=== PATIENT | male | born 1990 | race Caucasian/White ===

== ENCOUNTER 2024-04-10 12:11 | Inpatient (IN) | payer OTHER, SELFPAY ==
[2024-04-10 12:12] VITALS: BMI 44.4
--- NOTE | 2024-04-10 12:16 | EKG_ITS ---
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1990 Requested By: ED Temporary Provider Order Number: [id number] Reading MD: ED Temporary Provider Measurements Intervals [place] Rate: 116 P: 17 HI: 150 QRS: -49 QRSD: 88 T: -7 QT: 302 QTc: 421 Interpretive Statements SINUS TACHYCARDIA S1-S2-S3 PATTERN, CONSISTENT WITH PULMONARY DISEASE, RVH, OR NORMAL VARIANT LEFT ANTERIOR FASCICULAR BLOCK [QRS AXIS <= -45, QR IN I, RS IN II] MINIMAL VOLTAGE CRITERIA FOR LVH, CONSIDER NORMAL VARIANT [MEETS CRITERIA IN ONE OF: R(aVL), S(V1), R(V5), R(V5/V6)+S(V1)] POSSIBLE ANTERIOR MYOCARDIAL INFARCTION , PROBABLY OLD [30 ms Q WAVE IN V3/V4, OR R < 0.2 mV IN V4] No previous ECG available for comparison /store/S0/[id number]/[id number].pdf
--- NOTE | 2024-04-10 12:51 | XR_ITS ---
Examination: CT abdomen and pelvis without contrast. Coronal 3-D reconstructions. Sagittal 2-D reconstructions. Date and time of exam:April 10, 2024 at 1255 hours INDICATIONS: Generalized abdominal pain nausea vomiting today CTDI: vol (mGy): 12.7 DLP: (mGycm): 923 Technique: Axial images of the abdomen have been obtained, 3 mm slice thickness Intravenous contrast material has not been administered. Low dose protocols were performed. One or more of the following dose reduction techniques were used; automated exposure control, adjustment of the mA and/or KV according to patient size, use of iterative reconstruction technique. Findings: Hepatomegaly 22 cm with severe diffuse fatty infiltration throughout the liver Splenomegaly AP dimension 15 cm Acute pancreatitis, extensive edema surrounding the pancreas Aorta normal size No hydronephrosis No bowel obstruction Normal appendix No diverticulitis Urinary bladder wall thickening up to 6 mm No prostatomegaly IMPRESSION: Hepatosplenomegaly Severe diffuse fatty infiltration throughout the liver Acute pancreatitis Cystitis pattern
--- NOTE | 2024-04-10 12:51 | PD.EDRME ---
Rapid Medical Screening Exam RME Arrival date/time: 04/10/24 12:11 33-year-old male presents emergency department complains of generalized abdominal pain and chest pressure Chief Complaint: Abdominal Pain
[2024-04-10 13:00] VITALS: BP 145/84; PULSE 117; RESP 20; TEMP 38.4; O2SAT 96; BMI 44.6
[2024-04-10 13:35] LABS: Collection Type, Urine Clean Catch
[2024-04-10 13:38] LABS: Lactate (Lactic Acid) 1.3 mMol/L (0.4-2.0)
[2024-04-10 13:40] LABS: Basophils % (Auto) 0 % (0-2.5); Eosinophils % (Auto) 0 % (0-10); Hematocrit 41.4 % (41.0-53.0); Hemoglobin 14.3 g/dL (13.5-16.0); Immature Granulocytes % (Auto) 1 % (0-0); Immature Granulocytes Auto 0.11 Thou/mm3 (0.00-0.00); Lymphocytes # (Auto) 0.4 Thou/mm3 (1.0-4.8); Lymphocytes % (Auto) 5 % (10-50); Mean Corpuscular HGB Conc 34.5 g/dl (31.0-37.0); Mean Corpuscular Hemoglobin 29.6 pg (25.0-35.0); Mean Corpuscular Volume 86 fL (80-100); Monocytes # (Auto) 0.4 Thou/mm3 (0.0-0.8); Monocytes % (Auto) 4 % (0-12); Neutrophils # (Auto) 8.1 Thou/mm3 (1.8-7.7); Neutrophils % (Auto) 89 % (37-80); Nucleated Red Blood Cell % 0 /100 WBC (0); Platelet Count 269 Thou/mm3 (140-440); RDW Standard Deviation 38.5 fL (35.1-43.9); Red Blood Count 4.83 Miln/mm3 (4.50-5.90)
[2024-04-10 13:51] LABS: Bilirubin,Urine Negative (Negative); Blood,Urine Negative (Negative); Clarity,Urine Clear (Clear/Hazy); Color,Urine Lt-Yellow (Lt Yel-Yel); Culture Indicated,Urine Not Indicated; Glucose, Urine 4+ (Negative); Ketones,Urine 2+ (Negative); Leukocyte Esterase,Urine Negative (Negative); Nitrite,Urine Negative (Negative); PH,Urine 6.5 (5.0-7.0); Protein,Urine Negative (Neg - Trace); RBC,Urine 3 /hpf (0-3); Squamous Epithelial Cell,Urine < 1 /hpf (0-5); Urobilinogen,Urine Negative mg/dL (0.0-1.0); WBC,Urine 1 /hpf (0-5)
[2024-04-10 13:53] LABS: Specific Gravity,Urine 1.015 (1.001-1.035)
[2024-04-10 14:05] LABS: Alanine Aminotransferase 42 U/L (10-49); Albumin, Serum 4.5 gm/dL (3.5-5.0); Albumin/Globulin Ratio 1.6 (1.2-2.2); Alkaline Phosphatase 92 U/L (46-116); Anion Gap 11 (7-16); Aspartate Amino Transferase 24 U/L (0-34); BUN/Creatinine Ratio 13 Ratio (12-20); Bilirubin,Total 0.6 mg/dL (0.3-1.2); Blood Urea Nitrogen 10 mg/dL (9-23); Calcium 8.8 mg/dL (8.3-10.6); Calcium (Corrected) 8.8 mg/dL (8.5-10.1); Carbon Dioxide 22.9 mMol/L (20.0-31.0); Chloride 99 mMol/L (98-107); Creatinine (Component) 0.8 mg/dL (0.6-1.3); Estimated Creatinine Clearance 164.3 mL/min (>60); Globulin 2.8 gm/dL (2.3-3.5); Glucose 359 mg/dL (74-106); Lipase 38 U/L (12-53); Osmolality,Calculated 279 (275-295); Potassium 3.7 mMol/L (3.4-5.1); Procalcitonin 0.29 ng/ml (0.0-0.49); Sodium 133 mMol/L (136-145); Total Protein 7.3 gm/dL (5.7-8.2); Troponin I < 0.002 ng/mL (0.0-0.045); eGFR > 60 See Note
[2024-04-10 14:43] VITALS: TEMP 38.4
[2024-04-10] MEDS: ACETAMINOPHEN 500 MG TABLET 1000 MG PO (14:43)
[2024-04-10] MEDS: ONDANSETRON ODT 4 MG TABRAP PO (14:44)
[2024-04-10 19:30] VITALS: BP 143/93; PULSE 93; RESP 18; TEMP 37.1; O2SAT 95
--- NOTE | 2024-04-10 22:45 | PC.NURSE ---
Dr. Harrington seeing pt in old triage room at this time.
--- NOTE | 2024-04-10 22:55 | EDNOTE_ITS ---
ED Abdominal Pain RME/HPI General Chief Complaint: Abdominal Pain Stated complaint: ABD PAIN AND BLOATING AND IS DM Time seen by provider: 04/10/24 22:58 Arrival date/time: 04/10/24 12:11 Limitations: no limitations RME / HPI RME / HPI narrative: 04/10/24 12:11 33-year-old male presents emergency department complains of generalized abdominal pain and chest pressure. ----- Dr. Harrington's Main ED Evaluation: 33yo male with a history of DM presents to the ED for a chief complaint of epigastric pain x 4 days. Patient states he's had increased urinary frequency, reporting he urinates 30-40x/day for the last 4 days. He states his epigastric pain has been worsening after he eats or drinks anything. He reports associated nausea and a fever of 101 at home. Patient denies any vomiting, diarrhea, cough or any other associated symptoms. No known allergies. Patient denies any alcohol use. He is s/p cholecystectomy. He has not been taking his metformin. Related Data Allergies Allergy/AdvReac Type Severity Reaction Status Date / Time No Known Allergies Allergy Verified 04/10/24 12:15 Review of Systems Review of Systems Systems Reviewed: All systems reviewed, normal except as documented Past Medical History Social History SMOKING STATUS: Current some day smoker ED Exam General Limitations: Present no limitations General appearance: Present alert and in no apparent distress Head Head exam: Present atraumatic Eye Eye exam: Present normal appearance, PERRL and EOMI ENT ENT exam: Present normal exam, normal oropharynx and mucous membranes dry Neck Neck exam: Present normal inspection, full ROM and trachea midline Chest Chest inspection: Present normal inspection and symmetric chest wall rise Respiratory Respiratory exam: Present normal lung sounds bilaterally Cardiovascular Cardiovascular exam: Present regular rate, normal rhythm and normal heart sounds Abdominal Exam Abdominal exam: Present soft and normal bowel sounds; Absent rebound Abdominal tenderness: Present epigastrium and mild Extremities Exam Extremities exam: Present normal inspection and full ROM; Absent pedal edema Back Exam Back exam: Present normal inspection and full ROM; Absent CVA tenderness (R) or CVA tenderness (L) Neurological Exam Neurological exam: Present alert, oriented X3 and CN II-XII intact Psychiatric Psychiatric exam: Present normal affect and normal mood Skin Skin exam: Present warm, dry, intact and normal color Course Quality Measures none Orders Category Date Time Status Bedside Influenza A&B Antigen Test NOW Care 04/10/24 12:56 Completed EKG (ED ONLY) *Do not use* NOW Care 04/10/24 12:[address] abdomen pelvis wo con Stat Exams 04/10/24 12:51 Completed EKG (ED Only) Stat Exams 04/10/24 12:16 Ordered Blood Culture (Lab) Stat Lab 04/10/24 13:16 Received CBC Stat Lab 04/10/24 13:16 Completed Comprehensive Metabolic Panel Stat Lab 04/10/24 13:16 Completed LDH (Lactate Dehydrogenase) Stat Lab 04/10/24 13:16 Completed Lactic Acid [Lactate (Lactic Acid)] Stat Lab 04/10/24 13:16 Completed Lipase Stat Lab 04/10/24 13:16 Completed Lipid Panel Stat Lab 04/10/24 13:16 Completed Procalcitonin Stat Lab 04/10/24 13:16 Completed Troponin I Stat Lab 04/10/24 13:16 Completed UA, C/S IF [Urinalysis, C/S if Indicated] Stat Lab 04/10/24 13:29 Completed Acetaminophen Tab [Tylenol ES Tab] Med 04/10/24 12:55 Discontinued 1,000 mg PO X1 ONE Acetaminophen Tab [Tylenol ES Tab] Med 04/10/24 14:48 Discontinued 500 mg PO .STK-MED ONE Ondansetron Odt [Zofran Odt] Med 04/10/24 12:55 Discontinued 4 mg PO X1 ONE Vital Signs Vital signs: Vital Signs Temperature 101.2 F H 04/10/24 13:00 Pulse Rate 117 H 04/10/24 13:00 Respiratory Rate 20 04/10/24 13:00 Blood Pressure 145/84 H 04/10/24 13:00 Pulse Oximetry (%) 96 04/10/24 13:00 Oxygen Delivery Method Room Air 04/10/24 13:00 Abdominal Pain MDM Patient data External records reviewed:: [facility] previous records (Per chart review, patient has no previous ED visits or admissions to this facility.) Clinical information provided by:: patient Social determinants that could affect healthcare access:: none Patient has the following chronic illnesses:: DM How is presenting disease/condition affected by chronic disease/condition?: uneffected by Evaluation data The following diagnostics were reviewed and interpreted by me:: lab results and radiology exam(s) Lab and/or radiology exams considered but not ordered:: none Interpretation Summary: CBC is normal, Glucose is elevated at 359, Lipase is normal, Lactic Acid is normal, Procalcitonin is normal, UA shows 4+ glucose and 2+ ketones, according to my interpretation. EKG done at 1257, sinus tachycardia, rate of 116, t-wave inversion in V3, no ST elevations or depressions, minimal LVH, QTC: 371, no STEMI, according to my interpretation. ---- [place] [facility] Report Signed Patient: MAGO LUNA. Record#: [id number] Birthdate: 1990 Age/Sex: 33 / M Location: [facility] Attending Dr: Ordering Physician: Kay DEWITT)Radames NP Date of Service: 04/10/24 Procedure(s): CT abdomen pelvis wo con Accession Number(s): [id number] cc: Kay DEWITT),Radames DAWKINS; Asad Bruce MD; NO PRIMARY/FAMILY,PHYSICIAN~ Examination: CT abdomen and pelvis without contrast. Coronal 3-D reconstructions. Sagittal 2-D reconstructions. Date and time of exam:April 10, 2024 at 1255 hours INDICATIONS: Generalized abdominal pain nausea vomiting today CTDI: vol (mGy): 12.7 DLP: (mGycm): 923 Technique: Axial images of the abdomen have been obtained, 3 mm slice thickness Intravenous contrast material has not been administered. Low dose protocols were performed. One or more of the following dose reduction techniques were used; automated exposure control, adjustment of the mA and/or KV according to patient size, use of iterative reconstruction technique. Findings: Hepatomegaly 22 cm with severe diffuse fatty infiltration throughout the liver Splenomegaly AP dimension 15 cm Acute pancreatitis, extensive edema surrounding the pancreas Aorta normal size No hydronephrosis No bowel obstruction Normal appendix No diverticulitis Urinary bladder wall thickening up to 6 mm No prostatomegaly IMPRESSION: Hepatosplenomegaly Severe diffuse fatty infiltration throughout the liver Acute pancreatitis Cystitis pattern Dictated By: Asad Bruce MD Signed By: <Electronically signed by Asad Bruce MD in OV> 04/10/24 7487 Medications / Prescriptions Medications or Prescriptions considered but not ordered:: none Medication administrations:: Medication Administration History Acetaminophen (Acetaminophen 500 Mg Tablet) 1,000 mg PO Q6HR PRN PRN Reason: Temp > 100.3 or Pain 1-6 Stop: 05/11/24 01:04 Dextrose (Dextrose 50%-Water Inj 50 Ml Syringe) 25 ml IV Q15MIN PRN PRN Reason: BG 50-70 responsive npo pt Stop: 05/10/24 23:16 Dextrose (Dextrose 50%-Water Inj 50 Ml Syringe) 50 ml IV Q15MIN PRN PRN Reason: BG <50 OR BG <70 & pt unresponsive Stop: 05/10/24 23:16 Enoxaparin Sodium (Enoxaparin Sod Inj 40 Mg/0.4 Ml Syringe) 40 mg SC QDAY [facility] Stop: 04/25/24 08:59 Glucagon (Glucagon Inj 1 Mg Vial) 1 mg IM Q15MIN PRN PRN Reason: BG <70, and no IV access Lactated Ringer's (Lactated Ringers) 1,000 mls @ 150 mls/hr IV .Q6H40M MONY Stop: 05/10/24 23:14 Last Admin: 04/11/24 00:22 Dose: 150 mls/hr Documented By: EF Insulin Glargine (Insulin Glargine (Lantus) 5 Unit/0.05 Ml (Per 5 Units)) 10 unit SC QDAY [facility] Stop: 05/11/24 08:59 Insulin Human Lispro (Insulin Lispro (Admelog) 1 Unit/0.01 Ml Unit) 0 unit SC AC [facility]; Protocol Stop: 05/11/24 07:29 Morphine Sulfate (Morphine Sulf Inj 10 Mg/Ml Vial) 2 mg IVP Q4HR PRN PRN Reason: PAIN SCALE 7-10 (Severe Stop: 04/15/24 23:14 Ondansetron HCl (Ondansetron Inj 2 Mg/Ml Inj 2 Ml) 4 mg IV Q6HR PRN; Protocol PRN Reason: NAUSEA OR VOMITING Stop: 05/10/24 23:52 Discontinued Medications Acetaminophen (Acetaminophen 500 Mg Tablet) 1,000 mg PO X1 ONE Stop: 04/10/24 12:56 Last Admin: 04/10/24 14:43 Dose: 1,000 mg Documented By: Acetaminophen (Acetaminophen 500 Mg Tablet) Confirm Administered Dose 500 mg PO .STK-MED ONE Stop: 04/10/24 14:49 Last Admin: 04/10/24 15:07 Dose: Not Given Documented By: DAA Non-Admin Reason: Duplicate Medication on eMAR Acetaminophen (Acetaminophen 500 Mg Tablet) 1,000 mg PO Q6HR PRN PRN Reason: Temp > 100.3 or Pain 1-3 Stop: 05/11/24 01:04 Morphine Sulfate (Morphine Sulf Inj 10 Mg/Ml Vial) 2 mg IVP Q2H PRN PRN Reason: PAIN SCALE 7-10 (Severe Stop: 04/15/24 23:14 Ondansetron HCl (Ondansetron Odt 4 Mg Tabrap) 4 mg PO X1 ONE; Protocol Stop: 04/10/24 12:56 Last Admin: 04/10/24 14:44 Dose: 4 mg Documented By: see above Consultations Consultation(s) initiated? (list below): Yes Consultation #1 (Physician, Specialty, Details): Discussed case with [Dr. Griffin] from Hospitalist service regarding admission. Discussed patients ED course, exam findings, labs, and radiology results. The Hospitalist [agrees] to accept the patient for admission. Time: 22:59 Diagnosis Differential diagnosis abdominal pain: acute appendicitis, diverticulitis, pancreatitis and other (dehydration, electrolyte abnormality) Most likely diagnosis given after review of the tests above:: acute pancreatitis Admission Indicated Admission indicated?: indicated Admission Request Was there a request for admission?: Yes Admission Attestation Admission request attestation: Discussed case with [] from Hospitalist service regarding admission. Discussed patients ED course, exam findings, labs, and radiology results. The Hospitalist [agrees,declines] to accept the patient for admission. Disposition Plan Disposition Plan: Admit Discharge Plan Plan Patient Disposition: Admit Acute Care w/in Hospital Patient condition on transfer: Stable Problem List Clinical Impression: Acute pancreatitis, History of hypertension
--- NOTE | 2024-04-10 23:19 | XR_ITS ---
Examination: AP chest single view Technique one AP portable upright chest single view Exam date and time: April 10, 1999 2610 4:00 PM Indications: Abdominal pain bloating and shortness of breath today Findings: Normal heart size. Lungs are clear. The osseous structures are intact Impression: No active disease
--- NOTE | 2024-04-10 23:21 | PD.EVENT ---
Documentation for date of: 04/10/24 Event Note Event Note: A 33-year-old male presented to the ER with the chief complaint of persistent bloating and a sensation of fullness for the past four days. The patient reports feeling constantly bloated with no appetite and a sensation of fullness even after drinking water. He denies vomiting, though he states he suppresses vomiting when it occurs. The symptoms worsened significantly this morning, accompanied by a fever of 101.1?F, body aches, and back pain radiating from his abdomen. He notes intermittent sweating, more pronounced in the mornings with previous chills. He denies diarrhea but reports upper abdominal pain that radiates to his back. This is the first episode of such symptoms, and he reports no similar prior issues. The patient has a history of diabetes, for which he was prescribed metformin but admits to nonadherence. He also has a history of gallbladder removal and denies high blood pressure. He uses occasional lmcq-yeg-sbifpzj medications such as Prilosec and was recently prescribed antibiotics for a cough related to the flu after visiting urgent care. His social history includes no regular alcohol use, no smoking, and limited cannabis use via a wax pen for a few days. He denies other substance use. He recalls being treated with antibiotic injections last week for a persistent cough and states he is completing his last dose of prescribed oral antibiotics. In the Emergency Department, vital signs were recorded as follows: temperature 101.2?F, heart rate 117 bpm, blood pressure 145/84 mmHg, respiratory rate 20 breaths per minute. Interventions included IV hydration and pain management. Laboratory results showed a white blood cell count of 9.0 and lipase of 38. Imaging via CT revealed hepatosplenomegaly, severe diffuse fatty infiltration of the liver, acute pancreatitis, and cystitis pattern. The patient was admitted for further management.
[2024-04-10 23:23] VITALS: BP 146/85; PULSE 91; RESP 18; O2SAT 95
--- NOTE | 2024-04-10 23:25 | ESHP_ITS ---
Documentation for date of: 04/10/24 HPI History of Present Illness Chief complaint: Nausea, Abdominal pain History of present illness: HPI: Patient is a 33-year-old male questionable history significant for xbu-xnhputy-pgqdywzox diabetes mellitus type 2 [13.5] and obesity class III presenting today with a chief complaint of nausea and abdominal pain. Patient stated that for the past 4 days he has nausea and abdominal pain. Patient stated that anytime after he had something to eat or drink he would feel severe nausea but never vomited. His abdominal pain he described as epigastric and left upper quadrant 6/10 in severity, intermittent, radiated to back, relieved by ibuprofen. Also associated with decreased appetite and watery diarrhea for past 3 days. Of note for the past 2 weeks patient had viral upper respiratory symptoms. These consisted mainly nonproductive cough, generalized weakness and generalized body pain. Last week Tuesday patient presented to [facility] urgent care and had IM antibiotics for 3 days and was prescribed a course of p.o. antibiotics for 5 days. Patient cannot remember the name of the antibiotics. Today patient's nausea progressively worsened and he called the MA who gave him a questionnaire to fill out. At the end of the questionnaire he was advised to immediately present to the emergency department. ED course: BP 145/84, pulse 117, RR 20, temp 101.2 F, SpO2 96% on room air. No significant for Hb 14.3, WBC 9, glucose 90, lipase 38. Urinalysis significant for 4+ glucose, 2+ ketones. Abdomen/pelvis CT significant for hepatomegaly 27 cm with fatty infiltrates, splenomegaly 15 cm and findings consistent with acute pancreatitis with diffuse edema. Patient received acetaminophen 1 g p.o. x 1 and ondansetron 4 Mg p.o. x 1 in the ED. Patient will be admitted for treatment and management of acute pancreatitis. Review of Systems Review of Systems Narrative Review of Systems: GENERAL: Denies fever/chills or diaphoresis. HEENT: Denies headaches or visual changes. Denies discharge. Neuro: Denies unusual weakness or difficulty speaking. CARDIO: Denies chest pain or palpitations. PULM: Denies SOB, couging or wheezing. GI: As above URO: Denies buring/itching/pain/urinary changes. MSK/EXT/SKIN: Denies joint/skeletal/muscle pain, issues/changes in upper or lower extremities, itchiness, or superficial pain. PSYCH: Cooperative, pleasant mood & affect. The rest of the review of systems is otherwise negative. Past Medical History Past Medical History Comments PMH COMMENT: Past medical history: - Non insulin dependent diabetes mellitus type 2 [13.5] Medication list: - Metformin 1g po BID - Non compliant Past surgical history: - Cholecystectomy 2020 Allergies: NKFDA Social history: Occupational History: Education Level: Marital Status: with 6 kids Tobacco use: Denies ETHO use: Denies Illicit drug use: Recently started to use Marijuana vape Social History Note: lives with and 6 kids Family History: Strong family history of Diabetes Exam Vital Signs Temp Pulse Resp BP Pulse Ox O2 Del Method 98.8 F 91 18 146/85 H 95 Room Air 04/10/24 19:30 04/10/24 23:23 04/10/24 23:23 04/10/24 23:23 04/10/24 23:23 04/10/24 23:23 Narrative Exam Constitutional Alert, oriented x 3 and comfortable. Young male, appears much older than his age. Obese. HEENT Vision grossly intact. Patent nares. Trachea midline. Respiratory Chest normal on inspection and clear auscultation bilaterally, decreased air entry at bases bilaterally. Cardiovascular S1 and S2 audible, RRR. No murmurs carotid bruit. No gross JVD. Abdominal Soft, obese and mild tenderness to deep palpation left upper quadrant and epigastrium, mass palpated 4 finger, breadths below right costal margin most consistent with liver mass palpated 2 fingerbreadths below left costal margin most consistent with spleen. Genitourinary No bladder tenderness, no flank pain. Normal to palpation. Musculoskeletal Extremities tone within normal limits. Trace LE edema. Neurological CN II - XII grossly intact. Extremity motor and sensation grossly intact. Skin Warm, dry and intact. No apparent lesions. Psychiatric Patient has good affect, is cooperative Results: Labs 04/10/24 13:16 04/10/24 13:16 Labs: Short CBC 04/10/24 Range/Units 13:16 WBC 9.0 (3.8-10.6) Thou/mm3 Hgb 14.3 (13.5-16.0) g/dL Hct 41.4 (41.0-53.0) % Plt Count 269 (140-440) Thou/mm3 BMP 04/10/24 13:16 Sodium 133 L Potassium 3.7 Chloride 99 Carbon Dioxide 22.9 BUN 10 Creatinine 0.8 Glucose 359 H Calcium 8.8 Cardiac Enzymes 04/10/24 Range/Units 13:16 Troponin I < 0.002 (0.0-0.045) ng/mL Liver Function 04/10/24 Range/Units 13:16 Total Bilirubin 0.6 (0.3-1.2) mg/dL AST 24 (0-34) U/L ALT 42 (10-49) U/L Alkaline Phosphatase 92 (46-116) U/L Albumin 4.5 (3.5-5.0) gm/dL Urine 04/10/24 Range/Units 13:29 Urine Color Lt-Yellow (Lt Yel-Yel) Urine Clarity Clear (Clear/Hazy) Urine pH 6.5 (5.0-7.0) Ur Specific [place] 1.015 (1.001-1.035) Urine Protein Negative (Neg - Trace) Urine Glucose (UA) 4+ A (Negative) Quality Measures Quality Measures none Medications Home Medications and Allergies Allergies Allergy/AdvReac Type Severity Reaction Status Date / Time No Known Allergies Allergy Verified 04/10/24 12:15 Visit Medications Dextrose (Dextrose 50%-Water Inj 50 Ml Syringe) 25 ml IV Q15MIN PRN PRN Reason: BG 50-70 responsive npo pt Stop: 05/10/24 23:16 Dextrose (Dextrose 50%-Water Inj 50 Ml Syringe) 50 ml IV Q15MIN PRN PRN Reason: BG <50 OR BG <70 & pt unresponsive Stop: 05/10/24 23:16 Enoxaparin Sodium (Enoxaparin Sod Inj 40 Mg/0.4 Ml Syringe) 40 mg SC QDAY [facility] Stop: 04/25/24 08:59 Glucagon (Glucagon Inj 1 Mg Vial) 1 mg IM Q15MIN PRN PRN Reason: BG <70, and no IV access Lactated Ringer's (Lactated Ringers) 1,000 mls @ 150 mls/hr IV .Q6H40M [facility] Stop: 05/10/24 23:14 Insulin Glargine (Insulin Glargine (Lantus) 5 Unit/0.05 Ml (Per 5 Units)) 10 unit SC QDAY [facility] Stop: 05/11/24 08:59 Insulin Human Lispro (Insulin Lispro (Admelog) 1 Unit/0.01 Ml Unit) 0 unit SC AC [facility]; Protocol Stop: 05/11/24 07:29 Morphine Sulfate (Morphine Sulf Inj 10 Mg/Ml Vial) 2 mg IVP Q2H PRN PRN Reason: PAIN SCALE 7-10 (Severe Stop: 04/15/24 23:14 Discontinued Medications Acetaminophen (Acetaminophen 500 Mg Tablet) 1,000 mg PO X1 ONE Stop: 04/10/24 12:56 Last Admin: 04/10/24 14:43 Dose: 1,000 mg Ondansetron HCl (Ondansetron Odt 4 Mg Tabrap) 4 mg PO X1 ONE; Protocol Stop: 04/10/24 12:56 Last Admin: 04/10/24 14:44 Dose: 4 mg Assessment & Plan Plan Patient is a 33-year-old male questionable history significant for unz-dryjaya-wcpfbcitb diabetes mellitus type 2 [13.5] and obesity class III presenting today with a chief complaint of nausea and abdominal pain. Patient will be admitted for treatment and management of acute pancreatitis. 1. Acute pancreatitis 2. SIRS 2/4 3. Nausea For the past 4 days patient had severe nausea upon p.o. intake of both solids and liquids associated with abdominal pain radiating to his back. On exam patient had tenderness to palpation in epigastrium and left upper quadrant. Etiology: Hyperlipidemia, biliary sludge, viral infection, mycoplasma, HIV, idiopathic. Abdomen/pelvis CT significant for hepatomegaly 27 cm with fatty infiltrates, splenomegaly 15 cm and findings consistent with acute pancreatitis with diffuse edema. Lipase 38 Patient met 2/3 Paige criteria for acute pancreatitis. [Abdominal pain and CT findings] BISAP score: 1 point. Initially tried to start patient on clear liquid diet, but he could not tolerate and started to dry heave. Plan: ? N.p.o. ? Lipid panel, HbA1c, HIV 1 and 2 rapid ordered ? Lactated Ringer's IV fluids at 125 cc/hour ? Ondansetron 4 Mg IV Q6 hourly as needed for nausea or vomiting ? Acetaminophen 1 g p.o. Q6 hourly for temperature >100.3 F ? Morphine 2 g IV Q4 hourly for pain 7/10 and above 4. Tnc-wmnulpc-fjpgidyrk diabetes mellitus type 2 [13.5] Patient home medication metformin 1 g p.o. twice daily. However patient admits to being compliant. Plan: ? Insulin sliding scale to cover for any blood glucose spikes 5. Obesity class III BMI 44.6 Plan: ? As patient is diabetic and obese he may benefit from a GLP-1 agonist on discharge. ? Patient may also benefit from bariatric surgery referral Health maintenance: Disposition: IV hydration and pain control Diet: NPO Lines: pIVs GI Prophylaxis: None Thrombo Prophylaxis: Enoxaparin 40 mg sc daily Code status: FULL CODE Plan of care discussed with Attending Dr. Elias Gaviria MD PGY 1 Attending Provider Attestation/Addendum Pt was evaluated and plan formulated together with the housestaff team. I have reviewed the residents note above and agree with most of its content. Please refer to the residents note for additional details.
[2024-04-10 23:39] LABS: Glucose Estimated Average 341 mg/dL (80-131); Hemoglobin A1C 13.5 % Hgb (4.8-6.0)
[2024-04-11] MEDS: RINGERS LACTATED 1000 ML 1,000 ML 150 ML IV ×3 (00:22→13:54)
[2024-04-11 00:33] LABS: HDL Cholesterol 25 mg/dL (40-60); LDH (Lactate Dehydrogenase) 347 U/L (120-246); Triglycerides 349 mg/dL (30-150)
[2024-04-11 00:48] LABS: Cardiac Risk Estimate 8.6 RATIO (4.0-6.7); Cholesterol 215 mg/dL (132-200); LDL Cholesterol,Calculated 120 mg/dL (0-130)
[2024-04-11 01:17] VITALS: BP 123/59; PULSE 88; RESP 17; TEMP 36.8; O2SAT 99; BMI 44.3
[2024-04-11 04:00] VITALS: BP 127/79; PULSE 84; RESP 19; TEMP 36.6; O2SAT 98
[2024-04-11 04:16] LABS: HIV (1&2) Antibody Rapid Non-Reactive
[2024-04-11 05:32] LABS: Basophils % (Auto) 0 % (0-2.5); Eosinophils # (Auto) 0.1 Thou/mm3 (0.0-0.5); Eosinophils % (Auto) 1 % (0-10); Hematocrit 37.3 % (41.0-53.0); Hemoglobin 12.7 g/dL (13.5-16.0); Immature Granulocytes % (Auto) 2 % (0-0); Immature Granulocytes Auto 0.09 Thou/mm3 (0.00-0.00); Lymphocytes # (Auto) 0.9 Thou/mm3 (1.0-4.8); Lymphocytes % (Auto) 16 % (10-50); Mean Corpuscular Hemoglobin 29.6 pg (25.0-35.0); Mean Corpuscular Volume 87 fL (80-100); Monocytes # (Auto) 0.6 Thou/mm3 (0.0-0.8); Monocytes % (Auto) 10 % (0-12); Neutrophils # (Auto) 4.3 Thou/mm3 (1.8-7.7); Neutrophils % (Auto) 72 % (37-80); Nucleated Red Blood Cell % 0 /100 WBC (0); Platelet Count 213 Thou/mm3 (140-440); RDW Standard Deviation 39.6 fL (35.1-43.9); Red Blood Count 4.29 Miln/mm3 (4.50-5.90)
[2024-04-11 06:18] LABS: Anion Gap 6 (7-16); BUN/Creatinine Ratio 16 Ratio (12-20); Blood Urea Nitrogen 13 mg/dL (9-23); Calcium 8.5 mg/dL (8.3-10.6); Carbon Dioxide 30.3 mMol/L (20.0-31.0); Chloride 100 mMol/L (98-107); Creatinine (Component) 0.8 mg/dL (0.6-1.3); Estimated Creatinine Clearance 163.7 mL/min (>60); Glucose 285 mg/dL (74-106); Magnesium 1.9 mg/dL (1.6-2.6); Osmolality,Calculated 282 (275-295); Potassium 3.4 mMol/L (3.4-5.1); Sodium 136 mMol/L (136-145); eGFR > 60 See Note
[2024-04-11] MEDS: INSULIN LISPRO (AdmeLOG) 1 UNIT/0.01 ML UNIT SC ×4 (07:14→21:49)
--- NOTE | 2024-04-11 07:30 | PC.NURSE ---
called Dr. Stafford regarding patient having a head ache, 5/10 pain. Patient is NPO and only has tylenol PO and morphine IV for pain. Per MD, okay to give tylenol PO with sips of water. Patient also states he was taking azithromycin which was prescribed when he went to urgent care, per patient last dose is today, asking if he needs to take the last dose today, per MD Rivera will review patient's chart. No new orders received at this time.
--- NOTE | 2024-04-11 07:43 | ESPR_ITS ---
<Statement entered by Vinicio Elliott MD - 04/17/24 12:09> I reviewed above note and agree with findings and plans. I have also personally examined the patient with medicine team and went over assessment and plan with medical team including product marketing intern and resident physician. Documentation for date of: 04/11/24 Subjective Subjective Interval history: No acute overnight events. Doing well today. Pain and nausea seems to be controlled with current regimen. Denies new or worsening of symptoms. Denies fever, chills, headaches, chest pain, sob, cough, GI or urinary symptoms. Exam Vital Signs Temp Pulse Resp BP Pulse Ox O2 Del Method 97.9 F 84 19 127/79 98 Room Air 04/11/24 04:00 04/11/24 04:00 04/11/24 04:00 04/11/24 04:00 04/11/24 04:00 04/11/24 04:00 Narrative Exam GENERAL * Obese, otherwise normal appearing adult male. No apparent distress HEENT * NCAT.?KRISTI. Oral mucosa is moist. Patent Nares NECK * Supple, nontender, no thyromegaly, no meningismus, no JVD, no step offs CHEST * RRR, no m/g/r * CTAB, no w/r/r. Symmetrical chest rise. No intercostal subcostal retraction * Atraumatic, nontender, no crepitus, symmetrical expansion. ABDOMEN * Soft, flat, mild tenderness to palpation of epigastrium. No guarding/rebound tenderness/masses. * Bowel sounds presents EXTREMITIES * Nontender, no cyanosis, no edema * No edema/cyanosis.? SKIN * Warm and dry, no jaundice/rashes. NEUROMUSCULAR * No lumbar or midline, no CVA, no paraspinal muscle spasm or tenderness. * Moves all 4 extremities well, with full ROM and good CSM. * FLORES x4, CN II-XII grossly intact. * No focal neurologic deficits. PSYCHIATRY * Normal mood and affect, cooperative, no SI or HI or hallucinations. Objective Labs 04/11/24 05:05 04/11/24 05:05 Labs: Laboratory Results - last 24 hr 04/10/24 04/10/24 04/10/24 13:06 13:16 13:29 WBC 9.0 RBC 4.83 Hgb 14.3 Hct 41.4 MCV 86 MCH 29.6 MCHC 34.5 RDW Std Deviation 38.5 Plt Count 269 Neut % (Auto) 89 H Lymph % (Auto) 5 L [place] % (Auto) 4 Eos % (Auto) 0 Baso % (Auto) 0 Neut # (Auto) 8.1 H Lymph # (Auto) 0.4 L [place] # (Auto) 0.4 Eos # (Auto) 0.0 Baso # (Auto) 0.0 Immature Gran # (Auto) 0.11 H Absolute Nucleated RBC 0.00 Immature Gran % 1 H Nucleated RBC % 0 Sodium 133 L Potassium 3.7 Chloride 99 Carbon Dioxide 22.9 Anion Gap 11 BUN 10 Creatinine 0.8 Estim Creat Clear Calc 164.3 eGFR > 60 BUN/Creatinine Ratio [address] Glu mg/dL 341 H Hemoglobin A1c 13.5 H Calculated Osmolality 279 Lactic Acid 1.3 Calcium 8.8 Corrected Calcium 8.8 Magnesium Total Bilirubin 0.6 AST 24 ALT 42 Alkaline Phosphatase 92 Lactate Dehydrogenase 347 H Troponin I < 0.002 Total Protein 7.3 Albumin 4.5 Globulin 2.8 Albumin/Globulin Ratio 1.6 Triglycerides 349 H Cholesterol 215 H LDL Cholesterol, Calc 120 HDL Cholesterol 25 L Cholesterol/HDL Ratio 8.6 H Lipase 38 Procalcitonin 0.29 Ur Collection Type Clean Catch Urine Color Lt-Yellow Urine Clarity Clear Urine pH 6.5 Ur Specific [place] 1.015 Urine Protein Negative Urine Glucose (UA) 4+ A Urine Ketones 2+ A Urine Blood Negative Urine Nitrite Negative Urine Bilirubin Negative Urine Urobilinogen (Auto) Negative Ur Leukocyte Esterase Negative Urine RBC 3 Urine WBC 1 Ur Squamous Epith Cells < 1 Urine Bacteria None Ur Culture Indicated? Not Indicated HIV 1&2 Antibody Rapid Non-Reactive 04/11/24 05:05 WBC 6.0 RBC 4.29 L Hgb 12.7 L Hct 37.3 L MCV 87 MCH 29.6 MCHC 34.0 RDW Std Deviation 39.6 Plt Count 213 D Neut % (Auto) 72 Lymph % (Auto) 16 [place] % (Auto) 10 Eos % (Auto) 1 Baso % (Auto) 0 Neut # (Auto) 4.3 Lymph # (Auto) 0.9 L [place] # (Auto) 0.6 Eos # (Auto) 0.1 Baso # (Auto) 0.0 Immature Gran # (Auto) 0.09 H Absolute Nucleated RBC 0.00 Immature Gran % 2 H Nucleated RBC % 0 Sodium 136 Potassium 3.4 Chloride 100 Carbon Dioxide 30.3 Anion Gap 6 L BUN 13 Creatinine 0.8 Estim Creat Clear Calc 163.7 eGFR > 60 BUN/Creatinine Ratio [address]ucose [address] Glu mg/dL Hemoglobin A1c Calculated Osmolality 282 Lactic Acid Calcium 8.5 Corrected Calcium Magnesium 1.9 Total Bilirubin AST ALT Alkaline Phosphatase Lactate Dehydrogenase Troponin I Total Protein Albumin Globulin Albumin/Globulin Ratio Triglycerides Cholesterol LDL Cholesterol, Calc HDL Cholesterol Cholesterol/HDL Ratio Lipase Procalcitonin Ur Collection Type Urine Color Urine Clarity Urine pH Ur Specific [place] Urine Protein Urine Glucose (UA) Urine Ketones Urine Blood Urine Nitrite Urine Bilirubin Urine Urobilinogen (Auto) Ur Leukocyte Esterase Urine RBC Urine WBC Ur Squamous Epith Cells Urine Bacteria Ur Culture Indicated? HIV 1&2 Antibody Rapid Quality Measures Quality Measures none Assessment & Plan Assessment Current Active Medications: Generic Name Dose Route Start Last Admin Trade Name Freq PRN Reason Stop Dose Admin Acetaminophen 1,000 mg 04/11/24 01:06 Acetaminophen 500 Mg Tablet PO 05/11/24 01:04 Q6HR PRN Temp > 100.3 or Pain 1-6 Dextrose 25 ml 04/10/24 23:17 Dextrose 50%-Water Inj 50 Ml Syringe IV 05/10/24 23:16 Q15MIN PRN BG 50-70 responsive npo pt Dextrose 50 ml 04/10/24 23:17 Dextrose 50%-Water Inj 50 Ml Syringe IV 05/10/24 23:16 Q15MIN PRN BG <50 OR BG <70 & pt unresponsive Enoxaparin Sodium 40 mg 04/11/24 09:00 Enoxaparin Sod Inj 40 Mg/0.4 Ml Syringe SC 04/25/24 08:59 QDAY MONY Glucagon 1 mg 04/10/24 23:17 Glucagon Inj 1 Mg Vial IM Q15MIN PRN BG <70, and no IV access Lactated Ringer's 1,000 mls @ 150 mls/hr 04/10/24 23:15 04/11/24 07:13 Lactated Ringers IV 05/10/24 23:14 150 mls/hr .[id number] MONY Administration Potassium Chloride 10 meq in 100 mls @ 100 mls/hr 04/11/24 07:23 Kcl Ivpb IV 04/11/24 11:22 Q1H MONY Insulin Glargine 12 unit 04/11/24 21:00 Insulin Glargine (Lantus) 5 Unit/0.05 Ml (Per 5 Units) SC 05/11/24 20:59 HS MONY Insulin Human Lispro 0 unit 04/11/24 12:00 Insulin Lispro (Admelog) 1 Unit/0.01 Ml Unit SC 05/11/24 11:59 Q6HR MONY Protocol Morphine Sulfate 2 mg 04/10/24 23:53 Morphine Sulf Inj 10 Mg/Ml Vial IVP 04/15/24 23:14 Q4HR PRN PAIN SCALE 7-10 (Severe Ondansetron HCl 4 mg 04/10/24 23:53 Ondansetron Inj 2 Mg/Ml Inj 2 Ml IV 05/10/24 23:52 Q6HR PRN NAUSEA OR VOMITING Protocol Plan Is a 33-year-old male with past medical history of T2DM, obesity class III presenting with nausea and vomiting x 4 days. Admitted for acute pancreatitis. Continued on pain control and IV fluids. Overall improving. Acute pancreatitis (improving) 2/2 Heavy THC use Most likely related to heavy THC use as indicated by patient. Triglyceride 349, less likely to be contributing. No history of alcohol use. Also possibly idiopathic. Lipase 38, CT showed acute pancreatitis, signs and symptoms suggestive of pancreatitis. ? Continue LR at 250 cc/HR ? Pain control ? ANTIEMETICS Uncontrolled T2DM Obesity class III Hyperlipidemia A1c 13.5, GLUCOSE 285. BMI 446. TGC 349, cholesterol 215, LDL 120. ? Glargine 12 continue sliding scale for now ? Recommended lifestyle modification, weight loss and exercise ? Recommended PCP follow-up SIRS 3/4 (resolved) Tachycardia, tachypnea, T101.2 on admission. No leukocytosis. Likely in settings of pain. No obvious source of infection at this point. ? Continue to monitor Health maintenance Diet: CHO consistent GI prophylaxis: PROTONIX DVT prophylaxis: LOVENOX Antibiotics: Not indicated CODE STATUS: Full code Disposition: Pending symptoms improvement Patient case was discussed with attending, Dr. Vinicio Elliott MD and senior residents Dr. Kwok and Dr. Burch. Glen Sanchez, DO PGYI Senior Resident Attestation: Patient is a 33-year-old male with significant past medical history of diabetes mellitus type 2 presented to ED with chief complaint of abdominal pain and nausea, was found to have acute pancreatitis suggested by imaging findings on CT abdomen. The etiology eliciting the current condition is unknown, but patient's reported that the patient recently had his amount of cannabis. However, his U tox was negative. This morning, his vitals were stable, no significant finding on physical examination. Labs were stable with lipase of 38. The patient's maintenance fluid was increased from 150 cc/h to 200 cc/h. He was started on insulin glargine 12 units daily at night, with sliding scale insulin. His A1c was 13.9 suggestive of uncontrolled diabetes mellitus. As no significant eliciting factor was identified, during discharge the patient will be recommended to get rheumatology referral from PCP for autoimmune pancreatitis workup. The patient was later started on clear liquid diet which he tolerated well, and his diet was advanced as tolerated. The patient will also be sent home during discharge on insulin glargine, Ozempic and metformin with CGM. I discussed with and supervised the product marketing intern physician involved in the care of this patient. I personally saw and examined the patient and discussed the assessment and plan with the entire medicine team, including my attending. I agree with the assessment and plan as documented above. Melo Burch MD PGY2 Internal Medicine
[2024-04-11 08:00] VITALS: BP 135/90; PULSE 87; RESP 21; TEMP 36.5; O2SAT 94
[2024-04-11] MEDS: ACETAMINOPHEN 500 MG TABLET 1000 MG PO (08:07)
[2024-04-11] MEDS: POTASSIUM CHL 10 mEq IVPB 10 MEQ/100 ML BAG 100 MEQ IV ×4 (08:07→11:14)
[2024-04-11] MEDS: INSULIN LISPRO (AdmeLOG) 1 UNIT/0.01 ML UNIT 7 UNIT SC (08:17)
[2024-04-11] MEDS: ENOXAPARIN SOD INJ 40 MG/0.4 ML SYRINGE SC (09:08)
[2024-04-11 12:00] VITALS: BP 162/100; PULSE 82; RESP 20; TEMP 36.7; O2SAT 96
--- NOTE | 2024-04-11 14:49 | PC.LAC ---
Patient's informed this nurse that patient had used large amount of cannabis recently and that she does not want to mention it in front of her . notified.
[2024-04-11 16:00] VITALS: BP 122/93; PULSE 70; RESP 19; TEMP 36.2; O2SAT 96
[2024-04-11 16:44] LABS: Amphetamine/Methamp Scrn,U Negative (Negative); Barbiturate Screen,Urine Negative (Negative); Benzodiazepines Screen,Urine Negative (Negative); Benzoylecgonine Screen, Ur Negative (Negative); Fentanyl Screen,Urine Negative (Negative); Opiate Screen,Urine Negative (Negative); THC Screen,Urine Negative (Negative)
--- NOTE | 2024-04-11 18:18 | PC.NURSE ---
Patient's reported to this nurse that patient used large amount of marijuana recently and does not want to mention in front of her . MD notified.
[2024-04-11 20:00] VITALS: BP 139/86; PULSE 65; RESP 18; TEMP 36.8; O2SAT 95
[2024-04-11] MEDS: RINGERS LACTATED 1000 ML 1,000 ML 200 ML IV (21:40)
[2024-04-11] MEDS: INSULIN GLARGINE (Lantus) 5 UNIT/0.05 ML (PER 5 UNITS) 12 UNIT SC (21:49)
[2024-04-12] VITALS: BP 122/87; PULSE 73; RESP 16; TEMP 36.4; O2SAT 95
[2024-04-12] MEDS: RINGERS LACTATED 1000 ML 1,000 ML 200 ML IV ×2 (02:41→08:08)
[2024-04-12 04:00] VITALS: BP 129/95; PULSE 84; RESP 17; TEMP 36.2; O2SAT 97
[2024-04-12 06:38] LABS: Basophils % (Auto) 0 % (0-2.5); Eosinophils # (Auto) 0.1 Thou/mm3 (0.0-0.5); Eosinophils % (Auto) 2 % (0-10); Hematocrit 41.2 % (41.0-53.0); Hemoglobin 13.9 g/dL (13.5-16.0); Immature Granulocytes % (Auto) 2 % (0-0); Immature Granulocytes Auto 0.13 Thou/mm3 (0.00-0.00); Lymphocytes # (Auto) 1.5 Thou/mm3 (1.0-4.8); Lymphocytes % (Auto) 20 % (10-50); Mean Corpuscular HGB Conc 33.7 g/dl (31.0-37.0); Mean Corpuscular Hemoglobin 29.6 pg (25.0-35.0); Mean Corpuscular Volume 88 fL (80-100); Monocytes # (Auto) 0.7 Thou/mm3 (0.0-0.8); Monocytes % (Auto) 10 % (0-12); Neutrophils # (Auto) 5.1 Thou/mm3 (1.8-7.7); Neutrophils % (Auto) 67 % (37-80); Nucleated Red Blood Cell % 0 /100 WBC (0); Platelet Count 256 Thou/mm3 (140-440); RDW Standard Deviation 39.6 fL (35.1-43.9); White Blood Count 7.6 Thou/mm3 (3.8-10.6)
[2024-04-12 07:00] LABS: Alanine Aminotransferase 44 U/L (10-49); Albumin/Globulin Ratio 1.6 (1.2-2.2); Alkaline Phosphatase 84 U/L (46-116); Anion Gap 8 (7-16); Aspartate Amino Transferase 24 U/L (0-34); BUN/Creatinine Ratio 10 Ratio (12-20); Bilirubin,Total 0.3 mg/dL (0.3-1.2); Blood Urea Nitrogen 6 mg/dL (9-23); Calcium 8.9 mg/dL (8.3-10.6); Calcium (Corrected) 8.9 mg/dL (8.5-10.1); Carbon Dioxide 29.2 mMol/L (20.0-31.0); Chloride 101 mMol/L (98-107); Creatinine (Component) 0.6 mg/dL (0.6-1.3); Estimated Creatinine Clearance 218.3 mL/min (>60); Globulin 2.5 gm/dL (2.3-3.5); Glucose 221 mg/dL (74-106); Magnesium 1.7 mg/dL (1.6-2.6); Osmolality,Calculated 280 (275-295); Phosphorous 3.1 mg/dL (2.4-5.1); Potassium 3.4 mMol/L (3.4-5.1); Sodium 138 mMol/L (136-145); Total Protein 6.5 gm/dL (5.7-8.2); eGFR > 60 See Note
[2024-04-12 08:00] VITALS: BP 139/100; PULSE 70; RESP 18; TEMP 36; O2SAT 95
[2024-04-12] MEDS: INSULIN LISPRO (AdmeLOG) 1 UNIT/0.01 ML UNIT SC ×2 (08:08→12:23)
[2024-04-12] MEDS: ENOXAPARIN SOD INJ 40 MG/0.4 ML SYRINGE SC (08:09)
[2024-04-12 12:00] VITALS: BP 130/95; PULSE 78; RESP 18; TEMP 36.3; O2SAT 95
[2024-04-12 13:34] VITALS: BMI 44.1
--- NOTE | 2024-04-12 14:46 | ESDS_ITS ---
<Statement entered by Vinicio Elliott MD - 04/17/24 12:10> I reviewed above note and agree with findings and plans. I have also personally examined the patient with medicine team and went over assessment and plan with medical team including mba intern and resident physician. Planned Discharge Date 04/12/24 DS: Providers Provider Date of admission: 04/10/24 23:15 Primary care physician: Physician No Primary/Family Admitting Provider: Alo Griffin MD Attending Provider on Admission: Vinicio Elliott MD Consults: 04/11/24 03:52 Referral Physical Therapy Routine Comment: Physician Instructions: Referral Respiratory Therapy Routine Comment: 04/12/24 09:34 Referral Registered Dietitian Routine Comment: Attending Provider on DC: Dr. Vinicio Elliott MD Discharging Provider: Dr. Vinicio Elliott MD DS: Diagnosis Problem List Completed Was Problem List Reviewed/Reconciled?: Yes Hospital Course Hospital Course Hospital course: This is a 33-year-old male with past medical history of T2DM, obesity class III presenting with nausea and vomiting x 4 days. Admitted for acute pancreatitis. Continued on pain control and IV fluids. Symptoms resolved at the time of discharge. Tolerating oral intake without abdominal pain, nausea, vomiting, diarrhea or constipation. Patient was stable at the time of discharge and will discharge to home. Radiographic findings: * CT abdomen/pelvis: Hepatosplenomegaly, diffuse fatty liver, acute pancreatitis, cystitis pattern. * CXR no active disease. * EKG sinus tachycardia, no acute ST changes. PATIENT INSTRUCTIONS: Follow-up with your PCP within 1 week of discharge. Ask for rheumatology referral for possible autoimmune causes of pancreatitis. Discuss possible starting STATIN therapy along with lifestyle changes for elevated lipids (TG 349, Cholesterol 215, HDL 25). Continue with soft food for a couple days and progress as tolerated. AVOID alcohol and THC, both can cause increased risk of pancreatitis along with heart disease and others. You have been started on: - Metformin 500 Mg twice daily - Ozempic could not be started due to recent history of pancreatitis - Insulin glargine 20 units daily at night - Dexcom 7 sensors for continuous glucose monitoring Recommended to healthy diet such as salads, avoid high sugar foods and processed food. Recommended to exercise daily for 45 minutes at least 5 days a week. Recommended to stay hydrated with oral fluids, preferably water. Return back to emergency department if your symptoms persist or does not improve. ADMISSION DIAGNOSES: Acute pancreatitis (improving) 2/2 Heavy THC use Uncontrolled T2DM Obesity class III Hyperlipidemia SIRS 3/4 (resolved) Patient case was discussed with attending, Dr. Vinicio Elliott MD and senior residents Dr. Kwok and Dr. Burch. Glen Sanchez, DO PGYI Senior Resident Attestation: I discussed with and supervised the mba intern physician involved in the care of this patient. I personally saw and examined the patient and discussed the assessment and plan with the entire medicine team, including my attending. I agree with the discharge plan as documented above. Melo Burch MD PGY2 Internal Medicine Time Spent with Patient Time attestation: Total time spent providing and/or coordinating discharge services: Greater than 35 minutes. Exam Vital Signs Temp Pulse Resp BP Pulse Ox O2 Del Method 96.8 F 70 18 139/100 H 95 Room Air 04/12/24 08:00 04/12/24 08:00 04/12/24 08:00 04/12/24 08:00 04/12/24 08:00 04/12/24 08:00 Narrative Exam GENERAL * Obese, otherwise normal appearing adult male. No apparent distress HEENT * NCAT.?KRISTI. Oral mucosa is moist. Patent Nares NECK * Supple, nontender, no thyromegaly, no meningismus, no JVD, no step offs CHEST * RRR, no m/g/r * CTAB, no w/r/r. Symmetrical chest rise. No intercostal subcostal retraction * Atraumatic, nontender, no crepitus, symmetrical expansion. ABDOMEN * Soft, flat, mild tenderness to palpation of epigastrium. No guarding/rebound tenderness/masses. * Bowel sounds presents EXTREMITIES * Nontender, no cyanosis, no edema * No edema/cyanosis.? SKIN * Warm and dry, no jaundice/rashes. NEUROMUSCULAR * No lumbar or midline, no CVA, no paraspinal muscle spasm or tenderness. * Moves all 4 extremities well, with full ROM and good CSM. * FLORES x4, CN II-XII grossly intact. * No focal neurologic deficits. PSYCHIATRY * Normal mood and affect, cooperative, no SI or HI or hallucinations. Discharge Plan Plan Patient Disposition: HOME (Self Care) Patient condition on transfer: Stable Care Plan Goals: Follow-up with your PCP within 1 week of discharge. Ask for rheumatology referral for possible autoimmune causes of pancreatitis. Discuss possible starting STATIN therapy along with lifestyle changes for elevated lipids (TG 349, Cholesterol 215, HDL 25). Continue with soft food for a couple days and progress as tolerated. AVOID alcohol and THC, both can cause increased risk of pancreatitis along with heart disease and others. You have been started on: - Metformin 500 Mg twice daily - Ozempic could not be started due to recent history of pancreatitis - Insulin glargine 20 units daily at night - Dexcom 7 sensors for continuous glucose monitoring Recommended to healthy diet such as salads, avoid high sugar foods and processed food. Recommended to exercise daily for 45 minutes at least 5 days a week. Recommended to stay hydrated with oral fluids, preferably water. Return back to emergency department if your symptoms persist or does not improve. Prescriptions/Referrals Prescriptions/Med Rec: New insulin glargine [Lantus Solostar U-100 Insulin] 100 unit/mL (3 mL) insulin pen 20 unit subcut QPM Qty: 15 2RF (DME) pen needle, diabetic [1st Tier Unifine Pentips] 31 gauge x 1/4 needle See Rx Instructions .Route Qty: 100 0RF Rx Instructions: As directed (DME) Dexcom G7 Sensor Device See Rx Instructions .Route Qty: 3 3RF Rx Instructions: Apply every 10 days (DME) Dexcom G7 Endodontics Dentist Misc See Rx Instructions .Route Qty: 1 0RF Rx Instructions: As directed metformin 500 mg tablet 500 mg PO BIDWMEAL Qty: 60 1RF Discontinued azithromycin 250 mg tablet 250 mg PO DAILY Patient Comments: TAKE 2 TABLETS BY MOUTH ON DAY 1, THEN TAKE 1 TABLET BY MOUTH A DAY FOR THE NEXT 4 DAYS. ibuprofen 800 mg tablet 800 mg PO BID Patient Comments: TAKE 1 TABLET BY MOUTH TWICE A DAY NEEDED FOR PAIN Referrals: No Primary/Family,Physician [Primary Care Provider] - Patient/Caregiver Discharge Instructions Education Materials: Understanding Pancreatitis, Pancreatitis Acute Dc Print Language: Macedonian Stand Alone Forms: Cari Award Info., Patient Portal Info Letter Discharge Order Discharge Orders: Discharge (Routine); Ordered 04/12/24 Ordered By: Glen Sanchez Quality Discharge Quality Measures VTE prophylaxis
== END 2024-04-12 14:30 | disposition home or self-care (01) | DRG 439 ==
LOC: SERX 22:58 → SERHOLD 04-11 00:15 → S3SX 04-11 02:24
PROVIDERS: Nurse Practitioner Primary Care; Student in an Organized Health Care Education/Training Program; Admitting Provider Internal Medicine; Emergency Provider Emergency Medicine; Visit Provider Internal Medicine
DX: K85.30 Drug induced acute pancreatitis without necrosis or infection (principal); R65.10 Systemic inflammatory response syndrome (SIRS) of non-infectious origin without acute organ dysfunction; Z68.41 Body mass index [BMI] 40.0-44.9, adult; E11.9 Type 2 diabetes mellitus without complications; E66.813 Obesity, class 3; K76.0 Fatty (change of) liver, not elsewhere classified; R16.2 Hepatomegaly with splenomegaly, not elsewhere classified; E78.5 Hyperlipidemia, unspecified; F12.90 Cannabis use, unspecified, uncomplicated; F17.200 Nicotine dependence, unspecified, uncomplicated; Z90.49 Acquired absence of other specified parts of digestive tract; Z79.84 Long term (current) use of oral hypoglycemic drugs; Z79.4 Long term (current) use of insulin
CPT/HCPCS: 36415; 71045; 74176; 80048; 80053; 80061; 80307; 81001; 83036; 83605; 83615; 83690; 83735; 84100; 84145; 84484; 85025; 86703; 87040; 87400; 93005; 94664; 97161; 99285; J1650; J1815; J3480; J7120; Q0162; A9270